=== PATIENT | female | born 1980 | race Caucasian/White ===

== ENCOUNTER 2021-12-18 08:00 | Outpatient (CLI) | payer BC, MEDICAID | END 2021-12-18 23:59 | disposition home or self-care (01) | LOC: LAB.N 08:00 | PROVIDERS: ATTEND Nurse Practitioner | DX: J06.9 Acute upper respiratory infection, unspecified (principal); Z20.822 Contact with and (suspected) exposure to COVID-19 ==

== ENCOUNTER 2022-03-17 15:15 | Outpatient (CLI) | payer BC ==
--- NOTE | 2022-03-17 17:40 | Ultrasound Report ---
PROCEDURE: Pelvic w/Transvaginal INDICATIONS: DYSMENORRHEA TECHNIQUE: Real-time scanning was performed of the pelvic organs, with image documentation. Additional endovagi nal scanning was necessary due to incomplete visualization of the adnexal and endometrial structures by transabdominal scanning. COMPARISON: None. FINDINGS: Uterus: Uterus is anteverted and normal in size at 6.6 x 4.5 x 3.5 cm. The myometrium is homogeneou s. The endometrium measures 8 mm in combined thickness. No fibroids seen. Small nabothian cysts. Ovaries: The right ovary measures 3.8 x 2.7 x 2.4 cm, with a calculated ovarian volume of 13 cc. Th e left ovary measures 2.6 x 2.1 x 1.8 cm, with a calculated ovarian volume of 5 cc. Right ovarian lac y appearing cyst measuring 1.9 x 1.5 x 1.3 cm.. Less than 12 follicles can be seen in each ovary. N o adnexal masses are seen. Other: No pathologic free abdominal or pelvic fluid. IMPRESSION: 1. Endometrium measures 8 mm in thickness. 2. Small right ovarian hemorrhagic cyst measuring 1.9 cm. 3. No fibroids demonstrated. Reviewed by: Miquel Blackmon MD on 03/17/2022 5:38 PM PDT Approved by: Miquel Blackmon MD on 03/17/2022 5:38 PM PDT Station ID: [id number]
== END 2022-03-17 15:16 | disposition home or self-care (01) ==
LOC: DI 15:15
PROVIDERS: ATTEND Registered Nurse
DX: N94.10 Unspecified dyspareunia (principal); N94.6 Dysmenorrhea, unspecified; N83.201 Unspecified ovarian cyst, right side; Z84.2 Family history of other diseases of the genitourinary system

== ENCOUNTER 2023-02-14 19:22 | Emergency (ER) | payer BC ==
--- NOTE | 2023-02-14 19:41 | ED Physician Documentation ---
PD HPI ABD PAIN - Stated complaint Stated Complaint: ABD PX - Chief complaint Chief Complaint: UTI - History obtained from History obtained from: Patient - Additional information Additional information: HPI from patient. Patient complains of suprapubic pain/pressure, urinary urgency. Symptoms began 2 days ago. She denies fever. She says her symptoms are similar to previous UTI symptoms that she has had. Review of Systems Constitutional: denies: Fever : reports: Dysuria. denies: Now [facility] PAST MEDICAL HISTORY - Past Medical History Past Medical History: Yes Psych: Depression, Anxiety - Past Surgical History Past Surgical History: No - Present Medications Home Medications: Ambulatory Orders Medication Instructions Recorded Confirmed Nitrofurantoin [Macrobid] 100 mg PO BID #10 cap 02/14/23 Phenazopyridine HCl [Pyridium] 200 mg PO TID PRN #6 tablet 02/14/23 methIMAzole [Methimazole] 10 mg PO DAILY 02/14/23 02/14/23 - Allergies Allergies/Adverse Reactions: Allergies Allergy/AdvReac Type Severity Reaction Status Date / Time Sulfa (Sulfonamide Allergy Rash Verified 02/14/23 19:34 Antibiotics) bee stings Allergy Unknown Edema Uncoded 06/14/14 01:07 - Social History Does the pt smoke?: Yes Smoking Status: Current every day smoker Does the pt drink ETOH?: No Does the pt have substance abuse?: Yes - Immunizations Immunizations are current?: No Immunizations: TDAP >10years/unknown PD ED PE NORMAL - Vitals Vital signs reviewed: Yes - General General: Alert and oriented X 3, No acute distress, Well developed/nourished - Abdomen Abdomen: Soft, Non tender - Back Back: No CVA TTP Results - Vitals Vitals: Vital Signs - 24 hr 02/14/23 02/14/23 19:30 20:42 Temperature 37.0 C Heart Rate 78 91 Respiratory 16 18 Rate Blood Pressure 119/81 H 119/67 O2 Saturation 97 99 Oxygen O2 Source Room air - Labs Labs: Laboratory Tests 02/14/23 19:40 Urine Color ORANGE Urine Clarity CLOUDY Urine pH 5.5 Ur Specific [place] 1.020 Urine Protein 100 H Urine Glucose (UA) 100 H Urine Ketones NEGATIVE Urine Occult Blood LARGE H Urine Nitrite POSITIVE H Urine Bilirubin NEGATIVE Urine Urobilinogen 2 H Ur Leukocyte Esterase SMALL H Urine RBC TNTC H Urine WBC >25 H Ur Squamous Epith Cells FEW Squamous Urine Bacteria Many H Ur Microscopic Review INDICATED Urine Culture Comments INDICATED Urine HCG, Qual NEGATIVE PD Medical Decision Making - ED course Complexity details: considered differential, d/w patient ED course: Patient's symptoms as well as the results of her urinalysis are consistent with UTI. UA shows TNTC red blood cells, > 25 WBC/hpf, few squamous cells, many bacteria. Negative UHCG. Results discussed with patient. She says she has had good results with Macrobid regarding previous UTIs. She is given 200 mg p.o. Pyridium, 100 mg p.o. Macrobid. Prescriptions for these medications are also electronically submitted to the [facility] in [place]. Return precautions reviewed. Departure - Departure Disposition: Home, Self Care Clinical Impression: Urinary tract infection Qualifiers: Urinary tract infection type: acute cystitis Hematuria presence: with hematuria Qualified Code(s): N30.01 - Acute cystitis with hematuria Condition: Good Instructions: ED UTI Cystitis Female Follow-Up: KORTNEY OLIVERA DO [Primary Care Provider] - (follow up in 4-5 days if symptoms have not resolved) Prescriptions: Nitrofurantoin [Macrobid] 100 mg PO BID #10 cap Phenazopyridine HCl [Pyridium] 200 mg PO TID PRN #6 tablet PRN Reason: dysuria Comments: Your urinalysis result tonight is strongly consistent with a urinary tract infection. For this, you were given the first dose of an antibiotic (nitrofurantoin), and a prescription for a 5-day course of this antibiotic has been electronically submitted to the [facility] pharmacy in [place]. You were also given a dose of Pyridium (medication to help with the symptoms of UTI) in the ER, and I have submitted a prescription for a 2-day course of this medication. As we discussed, you should not take the Pyridium for more than 2 days (while on an antibiotic), as the symptoms should significantly improve by no later than day 3 of the antibiotic course. Discharge Date/Time: 02/14/23 20:47
[2023-02-14 19:46] LABS: BILIRUBIN,URINE NEGATIVE (NEGATIVE); GLUCOSE, URINE (UA) 100 mg/dL (NEGATIVE); KETONES,URINE (UA) NEGATIVE (NEGATIVE); LEUKOCYTE ESTERASE, URINE SMALL (NEGATIVE); NITRITE,URINE POSITIVE (NEGATIVE); OCCULT BLOOD,URINE LARGE (NEGATIVE); PH,URINE 5.5 PH (5.0-7.5); PROTEIN,URINE 100 mg/dL (NEGATIVE); UROBILINOGEN,URINE 2 E.U./dL (NORMAL)
[2023-02-14 20:01] LABS: BACTERIA,URINE Many /HPF (None Seen); CLARITY,URINE CLOUDY (CLEAR); HCG UR QUAL NEGATIVE; RBC,URINE TNTC /HPF (0-5); SQUAMOUS EPITHELIAL CELL,UR FEW Squamous (<= Few); WBC,URINE >25 /HPF (0-5)
[2023-02-14] MEDS ORDERED: NITROFURANTOIN MACRO 100 MG CAPSULE PO STA (20:21)
[2023-02-14] MEDS ORDERED: PHENAZOPYRIDINE 100 MG TABLET PO STA (20:21)
--- OUTSIDE RECORDS SUMMARY | 2023-02-14 20:30 | EXTERNAL MEDICAL SUMMARY RPT | Continuity of Care Document ---
Author Name Unknown Address [address] [place] [address] Phone Organization [facility] Address [address] [place] [address] Phone Care Team Providers Care Veterinary Pharmacologist Name Role Phone Cliff Martinez Unavailable Unavailable Medications date description facility 2022-12-03 00:00 [facility]pratrop[facility] ital Results/Labs test date facility value unit notes Social History date description facility 2022-12-03 00:00 Smokes tobacco daily ([facility]) [facility] Vital Signs date measurement value units 2022-12-03 00:00 heart_rate 68 /min 2022-12-03 00:00 o2_saturation 98 % 2022-12-03 00:00 temperature_metric 36.44 C 2022-12-03 00:00 temperature_standard 97.6 F 2022-12-03 00:00 weight_metric 53.97 kg 2022-12-03 00:00 weight_standard 118.98 lb
[2023-02-14 20:43] VITALS: BP 119/67; O2SAT 99
== END 2023-02-14 20:47 | disposition home or self-care (01) ==
LOC: ED 19:22
DX: N30.01 Acute cystitis with hematuria (principal); F17.200 Nicotine dependence, unspecified, uncomplicated
CPT/HCPCS: 81001; 81025; 87086; 87181; 99283; A9270; 81003

== ENCOUNTER 2023-03-04 08:00 | Outpatient (CLI) | payer BC | END 2023-03-04 23:59 | disposition home or self-care (01) | LOC: LAB.N 08:00 | PROVIDERS: ATTEND Family Medicine | DX: R30.0 Dysuria (principal) | CPT/HCPCS: 87086; 87181 ==